=== PATIENT | female | born 1980 | race African-American/Black ===

== ENCOUNTER 2016-08-24 09:59 | Emergency (ER) ==
[2016-08-24] MEDS ORDERED: Acetaminophen 500 MG TAB ONE (10:16)
[2016-08-24] MEDS ORDERED: Ibuprofen 800 MG TAB ONE (10:16)
[2016-08-24] MEDS ORDERED: Lidocaine 1% 20 ML MDV ONE (10:16)
[2016-08-24] MEDS ORDERED: cefTRIAXone\\ROCEPHIN 2 GM VIAL ONE (10:16)
== END 2016-08-24 10:45 | disposition home or self-care (01) ==
LOC: NAV ERS 09:59
DX: K04.7 Periapical abscess without sinus (principal); E11.9 Type 2 diabetes mellitus without complications; J45.909 Unspecified asthma, uncomplicated; F17.210 Nicotine dependence, cigarettes, uncomplicated
CPT/HCPCS: 96372; J0696; J2001

== ENCOUNTER 2016-12-31 15:43 | Emergency (ER) | payer SELFPAY ==
[2016-12-31] MEDS ORDERED: Ibuprofen 200 MG TAB ONE (17:07)
[2016-12-31] MEDS ORDERED: Acetaminophen 325 MG TAB ONE (17:07)
[2016-12-31] MEDS ORDERED: Cephalexin 250 MG CAP ONE (17:07)
== END 2016-12-31 17:14 | disposition home or self-care (01) ==
LOC: NAV ERS 15:43
DX: K04.7 Periapical abscess without sinus (principal); E11.9 Type 2 diabetes mellitus without complications; J45.909 Unspecified asthma, uncomplicated; F17.210 Nicotine dependence, cigarettes, uncomplicated
CPT/HCPCS: 99282